=== PATIENT | male | born 1980 | race Caucasian/White ===

== ENCOUNTER 2017-07-31 17:07 | Emergency (ER) | payer OTHER, BC ==
[~2017-07-31] VITALS: Ht 180.3 cm; Wt 88.0 kg
[~2017-07-31 17:07] MED LIST: LEVOCETIRIZINE D5 MG PO; NORCO 5/3251 TABLET PO
[2017-07-31] MEDS ORDERED: ZOFRAN ODT4 MG PO (23:12)
[2017-07-31 23:50] VITALS: BP 129/79
== END 2017-07-31 23:54 | disposition home or self-care (01) ==
LOC: RME 17:07 → EME 17:07 → RME 23:54
DX: S06.0X0A Concussion without loss of consciousness, initial encounter (principal); S13.9XXA Sprain of joints and ligaments of unspecified parts of neck, initial encounter; M62.838 Other muscle spasm; M54.5 Low back pain; W11.XXXA Fall on and from ladder, initial encounter; Y93.89 Activity, other specified; Y92.813 Airplane as the place of occurrence of the external cause
CPT/HCPCS: 70450; 72040; 72170; 99281; 99284; J1885